=== PATIENT | male | born 1945 | race Caucasian/White ===

== ENCOUNTER 2016-11-18 15:46 | Emergency (ER) | payer MEDICARE ==
[2016-11-18 15:47] VITALS: BMI 25.6
[2016-11-18 16:20] VITALS: BP 143/72; PULSE 55; RESP 18; TEMP 97.9; O2SAT 99
--- NOTE | 2016-11-18 16:46 | C.PDOC ---
History Of Present Illness Patient is a 71 y/o M presenting with complaint of 1 year history of L upper back pain that started after he got shingles in the area. Reports that he has not followed up with his PMD. He reports using A&D with some relief. He is requesting pneumonia and shingles vaccines. Denies new complaints. Time Seen by Provider: 11/18/16 16:28 Chief Complaint (Nursing): Medical Clearance Past Medical History Vital Signs: Last Vital Signs Temp 97.9 F 11/18/16 16:16 Pulse 55 L 11/18/16 16:16 Resp 18 11/18/16 16:16 BP 143/72 11/18/16 16:16 Pulse Ox 99 11/18/16 16:55 - Medical History PMH: Benign Prostatic Hyperplasia, Diabetes, HTN Denies: Chronic Kidney Disease Family History: States: Unknown Family Hx - Social History Hx Tobacco Use: No Hx Alcohol Use: No Hx Substance Use: No - Immunization History Hx Tetanus Toxoid Vaccination: No Hx Influenza Vaccination: No Hx Pneumococcal Vaccination: No Review Of Systems Constitutional: Negative for: Fever Cardiovascular: Negative for: Chest Pain Respiratory: Negative for: Cough, Shortness of Breath, SOB with Excertion, Wheezing Gastrointestinal: Negative for: Nausea, Vomiting, Abdominal Pain, Diarrhea, Constipation Musculoskeletal: Negative for: Neck Pain Skin: Positive for: Other (pain to L upper back x 1 year). Negative for: Rash Neurological: Negative for: Weakness, Numbness, Altered Mental Status, Headache Physical Exam - Physical Exam Appears: Well, Non-toxic, No Acute Distress Skin: Normal Color, Warm, Dry Head: Atraumatic, Normacephalic Eye(s): bilateral: Normal Inspection, PERRL, EOMI Neck: Supple Cardiovascular: Rhythm Regular Respiratory: Normal Breath Sounds Gastrointestinal/Abdominal: Normal Exam, Soft, No Tenderness Back: Normal Inspection, No CVA Tenderness, No Decreased ROM, No Muscle Spasm, No Paraspinal Tenderness, Other (no rash) Extremity: Normal ROM Neurological/Psych: Oriented x3 Gait: Steady ED Course And Treatment O2 Sat by Pulse Oximetry: 99 Medical Decision Making Medical Decision Making: It was explained to patient that he cannot have shingles vaccine now as he has already had shingles. Instructed that we do not have pneumonia vaccine but he can get it at clinic. Patient has post-herpetic neuralgia. With give anti- inflammatory now and discharge with gabapentin. Disposition - Disposition Referrals: [facility] at [facility] [Outside] Disposition: HOME/ ROUTINE Disposition Time: 16:47 Condition: GOOD Additional Instructions: You have post shingles nerve pain. Take this medication. Follow-up with PMD within 2 days. Return to ED if condition worsens. Prescriptions: Gabapentin [Neurontin] 100 mg PO TID #90 capsule Instructions: Shingles (ED) - Clinical Impression Clinical Impression: Post herpetic neuralgia
== END 2016-11-18 17:05 | disposition home or self-care (01) ==
LOC: C.ER 15:46
DX: B02.29 Other postherpetic nervous system involvement (principal)
CPT/HCPCS: 96372; 99282; J1885

== ENCOUNTER 2017-08-29 17:49 | Emergency (ER) | payer MEDICARE ==
[2017-08-29 17:49] VITALS: BMI 25.6
--- NOTE | 2017-08-29 18:43 | C.PDOC ---
History Of Present Illness 72 y/o M p/w abdominal pain x 2 hours. Pain is epigastric but somewhat diffuse, feels that abdomen is hard, associated with NBNB vomiting x 4. He notes he also had chest pain and lower back pain, but they have both resolved. Denies fever, chills, diarrhea, dyspnea, dysuria, constipation. Time Seen by Provider: 08/29/17 18:35 Chief Complaint (Nursing): Chest Pain Past Medical History Vital Signs: Last Vital Signs Temp 98 F 08/29/17 19:46 Pulse 71 08/29/17 19:46 Resp 20 08/29/17 19:46 BP 134/67 08/29/17 19:46 Pulse Ox 96 08/29/17 19:46 - Medical History PMH: Benign Prostatic Hyperplasia, Diabetes, HTN Denies: Chronic Kidney Disease Family History: States: Unknown Family Hx - Social History Hx Tobacco Use: No Hx Alcohol Use: No Hx Substance Use: No - Immunization History Hx Tetanus Toxoid Vaccination: No Hx Influenza Vaccination: No Hx Pneumococcal Vaccination: No Review Of Systems Except As Marked, All Systems Reviewed And Found Negative. Constitutional: Negative for: Fever Respiratory: Negative for: Shortness of Breath Physical Exam - Physical Exam Additional Physical Exam Comments: Gen: NAD Head: NC/AT Eyes: PERRL ENT: MMM Neck: Supple Chest: No tenderness CV: Regular rate. Radial pulses 2+ Lungs: CTA b/l Abd: Epigastric/LUQ tenderness with guarding Back: No CVA tenderness Extremities: No swelling or tenderness Skin: No rash Neuro: Alert, no focal deficit ED Course And Treatment O2 Sat by Pulse Oximetry: 100 Against Medical Advice - AMA Patient Left Against Medical Advice: The patient declines admission to the hospital and wishes to leave the Emergency Department. This action is against my medical advice. This decision was made with informed refusal. The patient was told that admission to the hospital is necessary. Explanation of the reasons why were discussed. The risks of leaving were explained to the patient and include, but are not limited to, worsening of known or currently unknown conditions, permanent disability and from undiagnosed or untreated conditions. The patient has the capacity to make this informed decision and understands my explanation of the current medical problem and risks of leaving. The patient voluntarily accepts these risks and signed an AMA form documenting our conversation. The patient was given the opportunity to ask questions and reconsider. The patient was encouraged to return to the Emergency Department at any time for further care. Medical Decision Making Medical Decision Making: EKG NSR 65 bpm, no ST/T wave changes. Disposition - Disposition Disposition: AGAINST MEDICAL ADVICE Disposition Time: 19:22 Condition: UNKNOWN Prescriptions: Ondansetron ODT [Zofran ODT] 4 mg PO Q8 #12 odt Instructions: Leaving Against Medical Advice Forms: [facility] (Vietnamese), (AMA) Informed Refusal - Clinical Impression Clinical Impression: Abdominal pain, Left against medical advice
[2017-08-29 19:47] VITALS: BP 134/67; PULSE 71; RESP 20; TEMP 98
[2017-08-29 19:48] VITALS: O2SAT 100
--- NOTE | 2017-08-30 11:14 | RAD ---
HISTORY: chest pain COMPARISON: 07/13/2015 TECHNIQUE: Chest PA and lateral FINDINGS: LUNGS: No active pulmonary disease. PLEURA: No significant pleural effusion identified. No pneumothorax apparent. CARDIOVASCULAR: Normal. OSSEOUS STRUCTURES: Inferior subluxation right humeral head. Unlikely to represent hoang dislocation. Cannot rule out impaction fracture. Recommend further evaluation. Radiography of shoulder advised. VISUALIZED UPPER ABDOMEN: Normal. OTHER FINDINGS: None. IMPRESSION: No infiltrate. Inferior subluxation at right glenohumeral articulation. Recommend further evaluation with radiography of right shoulder.
--- NOTE | 2017-08-31 12:30 | CARD ---
APPROVED REPORT EKG Measurement Heart [id number] CT 170P37 [id number] <Conclusion> Normal sinus rhythm Normal ECG
== END 2017-08-29 19:48 | disposition left against medical advice (07) ==
LOC: C.ER 17:49
DX: R10.9 Unspecified abdominal pain (principal); I10 Essential (primary) hypertension

== ENCOUNTER 2017-12-24 16:52 | Emergency (ER) | payer MEDICARE, OTHER ==
[2017-12-24 16:53] VITALS: BMI 25.6
--- NOTE | 2017-12-24 18:09 | C.PDOC ---
History Of Present Illness 72 y/o male with history of BPH presents to ED with c/o chest pain for 3 days associated with sob worse when walking for a long distance. Patient admits to lower leg edema bilaterally and denies fever, cough, nausea, vomiting or any other complaints at this time. Time Seen by Provider: 12/24/17 18:01 Chief Complaint (Nursing): Chest Pain History Per: Patient History/Exam Limitations: no limitations Onset/Duration Of Symptoms: Days Current Symptoms Are (Timing): Still Present Past Medical History Reviewed: Historical Data, Nursing Documentation, Vital Signs Vital Signs: Last Vital Signs Temp 98.4 F 12/24/17 17:00 Pulse 66 12/24/17 17:00 Resp 20 12/24/17 17:00 BP 135/85 12/24/17 17:00 Pulse Ox 99 12/24/17 17:00 - Medical History PMH: Benign Prostatic Hyperplasia, Diabetes, HTN Surgical History: No Surg Hx Family History: States: No Known Family Hx - Social History Hx Tobacco Use: No Hx Alcohol Use: No Hx Substance Use: No - Immunization History Hx Tetanus Toxoid Vaccination: No Hx Influenza Vaccination: No Hx Pneumococcal Vaccination: No Review Of Systems Except As Marked, All Systems Reviewed And Found Negative. Cardiovascular: Positive for: Chest Pain Respiratory: Positive for: Shortness of Breath. Negative for: Cough Gastrointestinal: Negative for: Nausea, Vomiting Physical Exam - Physical Exam Additional Physical Exam Comments: Constitutional: No acute distress. Head: Normocephalic. Atraumatic. Eyes: PERRL. ENT: Moist mucous membranes. Neck: Supple. Cardiovascular: Regular rate. Radial pulse 2+ bilaterally. Chest: No tenderness. Respiratory: Clear to auscultation bilaterally. GI: Soft. Nontender. Nondistended. Back: No CVA tenderness. Musculoskeletal: Pitting edema bilaterally to lower extremities Skin: No rash. Neurologic: Alert, no focal deficit. ED Course And Treatment - Laboratory Results Result Diagrams: 12/24/17 18:13 12/24/17 18:13 O2 Sat by Pulse Oximetry: 99 (RA) Pulse Ox Interpretation: Normal Medical Decision Making Medical Decision Making: Found to be pancytopenic. Informed patient need for admission, likely blood transfusion. Patient refused, wished to go home AMA. Trop neg for this chest pain of 3 days. CXR no acute disease. Disposition - Disposition Disposition: AGAINST MEDICAL ADVICE Disposition Time: 19:00 Condition: GUARDED Instructions: Leaving Against Medical Advice Forms: [facility] (Latvian) - Clinical Impression Clinical Impression: Pancytopenia, Left against medical advice - Scribe Statement The provider has reviewed the documentation as recorded by the Scribaldo Ortiz All medical record entries made by the Scribe were at my direction and personally dictated by me. I have reviewed the chart and agree that the record accurately reflects my personal performance of the history, physical exam, medical decision making, and the department course for this patient. I have also personally directed, reviewed, and agree with the discharge instructions and disposition.
[2017-12-24 18:21] LABS: BASO % 0.3 % (0.0-2.0); EOS % 1.5 % (0.0-4.0); LYMPH # 1.5 K/uL (1.0-4.3); LYMPH % 56.4 % (20.0-40.0); MEAN CELL VOLUME 112.7 fL (80.0-94.0); MEAN CORPUSCULAR HEMOGLOBIN 38.6 pg (27.0-31.0); MEAN CORPUSCULAR HGB CONC 34.3 g/dL (33.0-37.0); MEAN PLATELET VOLUME 7.5 fL (7.2-11.7); MONO # 0.1 K/uL (0.0-0.8); MONO % 4.4 % (0.0-10.0); NEUT % 37.4 % (50.0-75.0); RBC 1.51 Mil/uL (4.40-5.90); RED CELL DISTRIBUTION WIDTH 13.6 % (11.5-14.5)
[2017-12-24 18:26] LABS: HEMOGLOBIN 5.8 g/dL (12.0-18.0); WHITE BLOOD COUNT 2.6 K/uL (4.8-10.8)
[2017-12-24 18:32] LABS: ALB/GLOB RATIO 1.5 (1.0-2.1); ALT/SGPT 48 U/L (21-72); AST/SGOT 50 U/L (17-59); BLOOD UREA NITROGEN 22 mg/dL (9-20); CALCIUM 9.4 mg/dl (8.6-10.4); GFR NON-AFRICAN AMERICAN > 60; LIPASE 122 U/L (23-300)
[2017-12-24 18:37] LABS: INR 1.2; PROTHROMBIN TIME 12.6 SECONDS (9.7-12.2)
[2017-12-24 18:43] LABS: B-TYPE NATRIURETIC PEPTIDE 188 pg/mL (0-900); CK-MB 1.13 ng/mL (0.0-3.38)
--- NOTE | 2017-12-24 18:52 | RAD ---
Date of service: 12/24/2017 HISTORY: chest pain COMPARISON: 08/29/2017 FINDINGS: LUNGS: No active pulmonary disease. PLEURA: No significant pleural effusion identified, no pneumothorax apparent. CARDIOVASCULAR: No atherosclerotic calcification present No radiographic findings to suggest acute or significant cardiovascular disease. OSSEOUS STRUCTURES: No significant abnormalities. VISUALIZED UPPER ABDOMEN: Normal. OTHER FINDINGS: None. IMPRESSION: No active disease. No significant interval change compared to the prior examination(s).
[2017-12-24 21:08] VITALS: BP 129/62; PULSE 61; RESP 15; TEMP 98.2; O2SAT 99
[2017-12-24 21:29] LABS: SQUAMOUS EPITHIAL < 1 /hpf (0-5); URINE BACTERIA FEW (<OCC); URINE BILIRUBIN NEGATIVE (NEGATIVE); URINE CLARITY Hazy (Clear); URINE COLOR Yellow (YELLOW); URINE GLUCOSE (UA) NORMAL (Normal); URINE LEUKOCYTE ESTERASE TRACE Leu/uL (Negative); URINE PROTEIN NEGATIVE (NEGATIVE)
[2017-12-24 21:35] LABS: URINE BLOOD TRACE (NEGATIVE)
--- NOTE | 2017-12-28 19:25 | CARD ---
APPROVED REPORT Date of service: 12/24/2017 EKG Measurement Heart [id number] [place] [id number] <Conclusion> Normal sinus rhythm Low voltage QRS Borderline ECG
== END 2017-12-24 21:31 | disposition left against medical advice (07) ==
LOC: C.ER 16:52 → C.9E 20:11 → UNDOADMIN 20:11 → C.5S 20:56 → C.9E 20:56
DX: D61.818 Other pancytopenia (principal); I10 Essential (primary) hypertension; E11.9 Type 2 diabetes mellitus without complications

== ENCOUNTER 2017-12-25 18:17 | Inpatient (IN) | payer MEDICARE, OTHER ==
[2017-12-25 18:17] VITALS: BMI 25.6
[2017-12-25 19:01] LABS: BASO % 0.4 % (0.0-2.0); EOS % 1.2 % (0.0-4.0); LYMPH # 1.1 K/uL (1.0-4.3); LYMPH % 48.7 % (20.0-40.0); MEAN CELL VOLUME 113.8 fL (80.0-94.0); MEAN CORPUSCULAR HEMOGLOBIN 39.3 pg (27.0-31.0); MEAN CORPUSCULAR HGB CONC 34.5 g/dL (33.0-37.0); MEAN PLATELET VOLUME 7.2 fL (7.2-11.7); MONO # 0.1 K/uL (0.0-0.8); MONO % 5.4 % (0.0-10.0); NEUT % 44.3 % (50.0-75.0); NRBC % 0.2 % (0.0-2.0); RBC 1.46 Mil/uL (4.40-5.90); RED CELL DISTRIBUTION WIDTH 13.7 % (11.5-14.5); WHITE BLOOD COUNT 2.2 K/uL (4.8-10.8)
[2017-12-25 19:08] LABS: HEMOGLOBIN 5.7 g/dL (12.0-18.0)
[2017-12-25 19:26] LABS: B-TYPE NATRIURETIC PEPTIDE 173 pg/mL (0-900)
--- NOTE | 2017-12-25 19:37 | C.PDOC ---
History Of Present Illness 72 y/o male with history of BPH presents to ED with c/o chest pain for 3 days associated with sob worse when walking for a long distance. Patient admits to lower leg edema bilaterally and denies fever, cough, nausea, vomiting or any other complaints at this time. He was seen in ED yesterday but signed out AMA after being advised to stay and receive proper medical help. Today he went to see his doctor, Dr. Ellis, who referred the patient to the hospital unaware of the fact that he was a patient here yesterday. Time Seen by Provider: 12/25/17 19:00 Chief Complaint (Nursing): Shortness Of Breath History Per: Patient History/Exam Limitations: no limitations Onset/Duration Of Symptoms: Days Current Symptoms Are (Timing): Still Present Quality: "Pain" Associated Symptoms: Ankle/Leg Swelling. denies: Fever, Productive Cough Recent travel outside of the [place]: No Past Medical History Reviewed: Historical Data, Nursing Documentation, Vital Signs Vital Signs: Last Vital Signs Temp 98.1 F 12/25/17 18:21 Pulse 71 12/25/17 18:21 Resp 20 12/25/17 18:21 BP 128/58 L 12/25/17 18:21 Pulse Ox 94 L 12/25/17 18:21 - Medical History PMH: Benign Prostatic Hyperplasia, Diabetes, HTN Denies: Chronic Kidney Disease Surgical History: No Surg Hx Family History: States: Unknown Family Hx - Social History Hx Tobacco Use: No Hx Alcohol Use: No Hx Substance Use: No - Immunization History Hx Tetanus Toxoid Vaccination: No Hx Influenza Vaccination: No Hx Pneumococcal Vaccination: No Review Of Systems Except As Marked, All Systems Reviewed And Found Negative. Cardiovascular: Positive for: Chest Pain Respiratory: Positive for: Shortness of Breath. Negative for: Cough Gastrointestinal: Negative for: Nausea, Vomiting Physical Exam - Physical Exam Additional Physical Exam Comments: Constitutional: No acute distress. Head: Normocephalic. Atraumatic. Eyes: PERRL. ENT: Moist mucous membranes. Neck: Supple. Cardiovascular: Regular rate. Radial pulse 2+ bilaterally. Chest: No tenderness. Respiratory: Clear to auscultation bilaterally. GI: Soft. Nontender. Nondistended. Back: No CVA tenderness. Musculoskeletal: Pitting edema bilaterally to lower extremities Skin: No rash. Neurologic: Alert, no focal deficit. ED Course And Treatment - Laboratory Results Result Diagrams: 12/25/17 18:58 12/25/17 18:58 O2 Sat by Pulse Oximetry: 94 (RA) Pulse Ox Interpretation: Normal - CT Scan/US CT Abdomen and Pelvis Other Rad Studies (CT/US): Read By Radiologist, Radiology Report Reviewed CT/US Interpretation: EXAM: CT Abdomen and Pelvis with IV contrast. CLINICAL HISTORY: Transaminitis. TECHNIQUE: Axial computed tomography images of the abdomen and pelvis with intravenous contrast. CONTRAST: With; Visipaque 320. COMPARISON: None provided. FINDINGS: LUNG BASES: The lung bases appear clear. No pleural effusions are seen. LIVER: Unremarkable. GALLBLADDER AND BILE DUCTS: Several small 2-3 mm calcified stones are seen in the gallbladder. 2 mm stone is noted in the distal CBD with mild intra and extrahepatic biliary ductal dilatation. PANCREAS: Unremarkable. SPLEEN: Unremarkable. ADRENAL GLANDS: Unremarkable. KIDNEYS, URETERS, AND BLADDER: Bilateral simple renal cysts. The kidneys otherwise appear within normal limits. There is no hydronephrosis or hydroureter. No urinary calculi are seen. Moderate amount of fecal material is seen throughout the colon compatible with constipation. STOMACH AND BOWEL: Moderate amount of stool fills the colon. APPENDIX: No evidence of acute appendicitis on CT examination. PERITONEUM: No free fluid. No free air. LYMPH NODES: No lymphadenopathy is evident. REPRODUCTIVE: The prostate is enlarged measuring 3.7 x 5.1 cm. VASCULATURE: No evidence of abdominal aortic aneurysm. BONES: No aggressive appearing osseous lesion. No acute osseous pathology evident. IMPRESSION: 1. Several small 2-3 mm calcified stones are seen in the gallbladder. 2 mm stone is noted in the distal CBD with mild intra and extrahepatic biliary ductal dilatation. 2. Moderate amount of fecal material is seen throughout the colon compatible with constipation. 3. The prostate is enlarged. CT Angio Chest Other Rad Studies (CT/US): Read By Radiologist, Radiology Report Reviewed CT/US Interpretation: EXAM: CTA Chest with Intravenous Contrast for Pulmonary Embolism. CLINICAL HISTORY: Dyspnea. TECHNIQUE: Axial CTA images of the chest with intravenous contrast using a pulmonary embolism protocol. Reconstructed images were created and reviewed. 427 mGy-cm. CONTRAST: With; Visipaque 320 was administered without incident. COMPARISON: None provided. FINDINGS: PULMONARY ARTERIES. No evidence of central or segmental pulmonary embolism is seen. AORTA. There is no evidence for aneurysm or dissection of the thoracic aorta. LUNGS. The lungs appear clear. PLEURAL SPACES. No pneumothorax evident. No pleural effusions. HEART. Heart is mildly enlarged. Borderline pulmonary venous congestive changes. No significant pericardial effusion. LYMPH NODES. No lymphadenopathy is evident. BONES. No focal osseous abnormality or acute fracture. UPPER ABDOMEN. Images of the upper abdomen are unremarkable. IMPRESSION: No evidence of PE. Heart is mildly enlarged. Borderline pulmonary venous congestive changes. Medical Decision Making Medical Decision Making: Found to be pancytopenic. Informed patient need for admission, likely blood transfusion. Trop neg for this chest pain of 3 days. CXR no acute disease. Plan: -D-Dimer -CBC -B-Type Natriuretic -Blood bank Dr. Ellis recommends hospitalist admission. Dr. Hernandez accepts patient to hospitalist service. EKG NSR 64 bpm, no ST elevations Disposition Discussed With DrKriss: Alonso Hernandez Doctor Will See Patient In The: ED - Disposition Disposition: HOSPITALIZED Disposition Time: 22:20 Condition: GUARDED Forms: [facility] (Nicaraguan) - Clinical Impression Clinical Impression: Pancytopenia - Scribe Statement The provider has reviewed the documentation as recorded by the Scribe (Gabriela Torre) Provider Attestation: All medical record entries made by the Scribe were at my direction and personally dictated by me. I have reviewed the chart and agree that the record accurately reflects my personal performance of the history, physical exam, medical decision making, and the department course for this patient. I have also personally directed, reviewed, and agree with the discharge instructions and disposition.
[2017-12-25 19:38] LABS: ALB/GLOB RATIO 1.5 (1.0-2.1); ALBUMIN 3.7 g/dL (3.5-5.0); ALT/SGPT 145 U/L (21-72); AST/SGOT 210 U/L (17-59); BLOOD UREA NITROGEN 20 mg/dL (9-20); GFR NON-AFRICAN AMERICAN > 60
[2017-12-25] MEDS ORDERED: Iodixanol 320 MG/ML 100 ML BOTTLE IV ONE (20:20)
[2017-12-25] MEDS ORDERED: Piperacill/Tazo 4.5gm in Dex 4.5 GM/100 ML BAG IVPB STA (22:04)
--- NOTE | 2017-12-26 03:30 | CP.PCM.HP ---
<Matthew Pickard - Last Filed: 12/26/17 04:18> History of Present Illness - History of Present Illness History of Present Illness: PGY-1 H&P note for Dr Hernandez service cc: chest pain, shortness of breath HPI: patient is a 72 year old male with past medica history of shingles and BPH that comes to ED after visiting his primary Doctor Caleb requested him to go to ER for treatment of anemia. Patient came to the ER the night before complaining of chest pain, shortness of breath and lower extremity edema, but decided to leave AMA after being told that he needed to be admitted for further workup and blood transfusion for low hemoglobin levels. Patient admits to continuing chest pain and shortness of breath when walking long distances. Patient admits to abdominal pain when eating foods. Patient denies fever, chills, palpitations, nausea, vomiting, diarrhea, blood in the urine or stools. PMD: Caleb Alleriges : NKDA Past medical history: shingles, BPH, cholelithiasis Shx: denies Famhx: noncontributory Sochx: denies tobacco, alcohol or illicit drug use Present on Admission - Present on Admission Any Indicators Present on Admission: No Review of Systems - Review of Systems All systems: reviewed and no additional remarkable complaints except Review of Systems: as stated in HPI Past Patient History - Infectious Disease Hx of Infectious Diseases: None - Past Medical History & Family History Past Medical History?: Yes - Past Social History Smoking Status: Never Smoked - CARDIAC Hx Hypertension: Yes - PULMONARY Hx Respiratory Disorders: No - NEUROLOGICAL Hx Neurological Disorder: No - HEENT Hx HEENT Problems: No - RENAL Hx Chronic Kidney Disease: No - ENDOCRINE/METABOLIC Hx Endocrine Disorders: No - HEMATOLOGICAL/ONCOLOGICAL Hx Blood Disorders: No - INTEGUMENTARY Hx Dermatological Problems: No - MUSCULOSKELETAL/RHEUMATOLOGICAL Hx Musculoskeletal Disorders: No Hx Falls: No - GASTROINTESTINAL Hx Gastrointestinal Disorders: No - GENITOURINARY/GYNECOLOGICAL Hx Genitourinary Disorders: Yes - PSYCHIATRIC Hx Substance Use: No - SURGICAL HISTORY Hx Surgeries: No - ANESTHESIA Hx Anesthesia: No Meds Allergies/Adverse Reactions: Allergies Allergy/AdvReac Type Severity Reaction Status Date / Time No Known Allergies Allergy Verified 12/25/17 18:23 Physical Exam - Constitutional Appears: Non-toxic, No Acute Distress - Head Exam Head Exam: ATRAUMATIC, NORMAL INSPECTION, NORMOCEPHALIC - Eye Exam Eye Exam: EOMI, Normal appearance Pupil Exam: NORMAL ACCOMODATION - ENT Exam ENT Exam: Mucous Membranes Moist, Normal Exam - Neck Exam Neck exam: Positive for: Normal Inspection - Respiratory Exam Respiratory Exam: Clear to Auscultation Bilateral, NORMAL BREATHING PATTERN. absent: Rales, Rhonchi, Wheezes, Respiratory Distress - Cardiovascular Exam Cardiovascular Exam: REGULAR RHYTHM, +S1, +S2 - GI/Abdominal Exam GI & Abdominal Exam: Soft. absent: Distended, Tenderness - Extremities Exam Extremities exam: Positive for: full ROM Additional comments: +2 pitting edema - Back Exam Back exam: FULL ROM, NORMAL INSPECTION - Neurological Exam Neurological exam: Alert, Normal Gait, Oriented x3 - Psychiatric Exam Psychiatric exam: Normal Affect, Normal Mood - Skin Skin Exam: Dry, Intact, Normal Color, Warm Results - Vital Signs Recent Vital Signs: Last Vital Signs Temp 98.2 F 12/26/17 02:33 Pulse 69 12/26/17 02:33 Resp 16 12/26/17 02:33 BP 127/56 L 12/26/17 02:33 Pulse Ox 100 12/26/17 02:33 - Labs Result Diagrams: 12/25/17 18:58 12/25/17 18:58 Labs: Laboratory Results - last 24 hr 12/25/17 12/25/17 12/25/17 18:58 18:58 18:58 WBC 2.2 L RBC 1.46 L Hgb 5.7 L* Hct 16.6 L MCV 113.8 H MCH 39.3 H MCHC 34.5 RDW 13.7 Plt Count 104 L MPV 7.2 Neut % (Auto) 44.3 L Lymph % (Auto) 48.7 H Petroleum % (Auto) 5.4 Eos % (Auto) 1.2 Baso % (Auto) 0.4 Neut # (Auto) 1.0 L Lymph # (Auto) 1.1 Petroleum # (Auto) 0.1 Eos # (Auto) 0.0 Baso # (Auto) 0.0 D-Dimer, Quantitative Sodium 138 Potassium 4.0 Chloride 103 Carbon Dioxide 27 Anion Gap 12 BUN 20 Creatinine 0.8 Est GFR ( Amer) > 60 Est GFR (Non-Af Amer) > 60 Random Glucose 136 H Calcium 9.0 Total Bilirubin 2.1 H AST 210 H D ALT 145 H D Alkaline Phosphatase 220 H D NT-Pro-B Natriuret Pep 173 Total Protein 6.2 L Albumin 3.7 Globulin 2.5 Albumin/Globulin Ratio 1.5 Blood Type O POSITIVE Antibody Screen Negative 12/25/17 19:40 WBC RBC Hgb Hct MCV MCH MCHC RDW Plt Count MPV Neut % (Auto) Lymph % (Auto) Petroleum % (Auto) Eos % (Auto) Baso % (Auto) Neut # (Auto) Lymph # (Auto) Petroleum # (Auto) Eos # (Auto) Baso # (Auto) D-Dimer, Quantitative 262 H Sodium Potassium Chloride Carbon Dioxide Anion Gap BUN Creatinine Est GFR ( Amer) Est GFR (Non-Af Amer) Random Glucose Calcium Total Bilirubin AST ALT Alkaline Phosphatase NT-Pro-B Natriuret Pep Total Protein Albumin Globulin Albumin/Globulin Ratio Blood Type Antibody Screen Assessment & Plan - Assessment and Plan (Free Text) Plan: dyspnea/chest pain - CT angio chest - f/u official report - ED Zosyn 1.5gm IVPB stat - blood cultures stat - O2 NC 2L PRN Pancytopenia, r/o hematological disease - Hbg 5.7, HCt 16.6 - WBC: 2.2 - Plt count: 104 - afebrile - 2 units RBCs - CT chest - Heme/onc consult - Dr Mackey- help is appreciated - f/u CBC, CMP Abdominal pain, hx of cholelithiasis - U/s gallbladder and hepatic - f/u - GI consult - Dr Basim Crews - help is appreciated bilateral pitting edema, lower ext - D- dimer - 262 - Echo -f/u - Lasix 20 mg IVP stat transaminitis - Abd and pelvis IV contrast - f/u hx of bph - continue home med flomax 0.4 PO HS ppx: DVT: SCDs heart healthy diet DISPO: Nurse called house pager early in the am on Tuesday 12/26 because patient wanting to leave the hospital AMA. Patient stated that he wants to leave because he already got blood transfusion. Patient demanded to know what else is to be done for him, which was explained to him multiple times that blood work and further workup, as well as consultations were planned for his hospital stay. Krunal mckoy decided to stay and wait for the corporate development manager for doctors to tell him about lab work. Plan discussed with Dr Alonso Pickard, PGY-1 - Date & Time Date: 12/26/17 Time: 01:00 <Alonso Hernandez P - Last Filed: 12/26/17 07:38> Results - Vital Signs Recent Vital Signs: Last Vital Signs Temp 98.2 F 12/26/17 02:33 Pulse 69 12/26/17 02:33 Resp 16 12/26/17 02:33 BP 127/56 L 12/26/17 02:33 Pulse Ox 100 12/26/17 02:33 - Labs Result Diagrams: 12/25/17 18:58 12/25/17 18:58 Labs: Laboratory Results - last 24 hr 12/25/17 12/25/17 12/25/17 18:58 18:58 18:58 WBC 2.2 L RBC 1.46 L Hgb 5.7 L* Hct 16.6 L MCV 113.8 H MCH 39.3 H MCHC 34.5 RDW 13.7 Plt Count 104 L MPV 7.2 Neut % (Auto) 44.3 L Lymph % (Auto) 48.7 H Petroleum % (Auto) 5.4 Eos % (Auto) 1.2 Baso % (Auto) 0.4 Neut # (Auto) 1.0 L Lymph # (Auto) 1.1 Petroleum # (Auto) 0.1 Eos # (Auto) 0.0 Baso # (Auto) 0.0 D-Dimer, Quantitative Sodium 138 Potassium 4.0 Chloride 103 Carbon Dioxide 27 Anion Gap 12 BUN 20 Creatinine 0.8 Est GFR ( Amer) > 60 Est GFR (Non-Af Amer) > 60 Random Glucose 136 H Calcium 9.0 Total Bilirubin 2.1 H AST 210 H D ALT 145 H D Alkaline Phosphatase 220 H D NT-Pro-B Natriuret Pep 173 Total Protein 6.2 L Albumin 3.7 Globulin 2.5 Albumin/Globulin Ratio 1.5 Blood Type O POSITIVE Antibody Screen Negative 12/25/17 19:40 WBC RBC Hgb Hct MCV MCH MCHC RDW Plt Count MPV Neut % (Auto) Lymph % (Auto) Petroleum % (Auto) Eos % (Auto) Baso % (Auto) Neut # (Auto) Lymph # (Auto) Petroleum # (Auto) Eos # (Auto) Baso # (Auto) D-Dimer, Quantitative 262 H Sodium Potassium Chloride Carbon Dioxide Anion Gap BUN Creatinine Est GFR ( Amer) Est GFR (Non-Af Amer) Random Glucose Calcium Total Bilirubin AST ALT Alkaline Phosphatase NT-Pro-B Natriuret Pep Total Protein Albumin Globulin Albumin/Globulin Ratio Blood Type Antibody Screen Attending/Attestation - Attestation I have personally seen and examined this patient.: Yes I have fully participated in the care of the patient.: Yes I have reviewed all pertinent clinical information: Yes Notes (Text): 12/26/17 07:34 Pancytopenia, with major component being anemia 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 Chronic cholecystitis, with lithiasis and intermittent choledocolithiasis, in the past not compliant with gb surgery offered, has mild episode this time as well Patient has sick at home does not stay in the hospital longer then few hrs, last night stayed for blood transfusions, but needs further cardiac eval with echo, diuresis, w/u for pancytopenia including BM biopsy, also plan regarding biliary w/u and plan for future cholecystectomy, but as the patient has been very non compliant with hospital stay it is very likely that he will sign out this time, he had requested that in the middle of the night and we were able to convince him to stay till the morning.
[2017-12-26 07:35] LABS: BASO % 0.3 % (0.0-2.0); EOS # 0.1 K/uL (0.0-0.7); EOS % 2.6 % (0.0-4.0); LYMPH # 1.4 K/uL (1.0-4.3); LYMPH % 51.3 % (20.0-40.0); MEAN CORPUSCULAR HEMOGLOBIN 36.5 pg (27.0-31.0); MEAN CORPUSCULAR HGB CONC 35.3 g/dL (33.0-37.0); MONO # 0.1 K/uL (0.0-0.8); MONO % 4.5 % (0.0-10.0); NEUT # 1.1 K/uL (1.8-7.0); NEUT % 41.3 % (50.0-75.0); NRBC % 0.1 % (0.0-2.0); RBC 2.17 Mil/uL (4.40-5.90); RED CELL DISTRIBUTION WIDTH 21.9 % (11.5-14.5); WHITE BLOOD COUNT 2.7 K/uL (4.8-10.8)
[2017-12-26 07:43] LABS: HEMOGLOBIN 7.9 g/dL (12.0-18.0); MEAN CELL VOLUME 103.5 fL (80.0-94.0)
[2017-12-26 09:13] LABS: BLOOD UREA NITROGEN 19 mg/dL (9-20); GFR NON-AFRICAN AMERICAN > 60
[2017-12-26 09:14] LABS: ALB/GLOB RATIO 1.4 (1.0-2.1); ALBUMIN 3.4 g/dL (3.5-5.0); ALT/SGPT 110 U/L (21-72); AST/SGOT 93 U/L (17-59)
[2017-12-26 10:47] VITALS: BP 111/36; PULSE 60; RESP 20; TEMP 98.3; O2SAT 95
[2017-12-26 11:22] LABS: FOLATE > 20.0 ng/mL
--- NOTE | 2017-12-26 12:01 | CT ---
Date of service: 12/25/2017 PROCEDURE: CT Chest with contrast (Pulmonary Angiogram) HISTORY: dyspnea COMPARISON: None available. TECHNIQUE: Axial computed tomography images were obtained of the chest in the pulmonary arterial phase of enhancement. Coronal and sagittal reformatted images were created and reviewed. Sagittal coronal MIPS reformatted images were obtained. Radiation dose: Total exam DLP = 427.47 mGy-cm. This CT exam was performed using one or more of the following dose reduction techniques: Automated exposure control, adjustment of the mA and/or kV according to patient size, and/or use of iterative reconstruction technique. FINDINGS: PULMONARY ARTERIES: No evidence of central pulmonary embolism. More limited evaluation of the segmental and subsegmental branches. AORTA: Atherosclerotic calcification and mural plaque within the visualized aorta. Ascending thoracic aorta measures up to 3.9 centimeters with some aneurysmal dilatation. Aortic arch measures 2.4 centimeters. Descending thoracic aorta measures 3.4 centimeters. LUNGS: Right lung: Atelectasis at the right lung base. Left lung: Atelectasis at the left lung base. Trachea thru central airways are patent. Pulmonary venous congestion. PLEURAL SPACES: Unremarkable. No effusion or pneumothorax. HEART: Mildly enlarged. No significant pericardial effusion. Coronary calcifications. LYMPH NODES: No lymphadenopathy. BONES, CHEST WALL: Degenerative changes in the spine. OTHER FINDINGS: Heterogeneous thyroid with a questionable 6 millimeter nodule in the left lobe of the thyroid. Prominent liver and spleen. Cholelithiasis. Small hiatal hernia. IMPRESSION: 1. No evidence of central pulmonary embolism. 2. Heart is mildly enlarged. 3. Borderline pulmonary venous congestive changes. 4. Ascending thoracic aorta measures up to 3.9 centimeters with some aneurysmal dilatation. 5. Heterogeneous thyroid with a questionable 6 millimeter nodule in the left lobe of the thyroid. 6. Prominent liver and spleen. Cholelithiasis. 7. Small hiatal hernia. Additional findings as above. These findings were preliminarily reported at 9:42 p.m. on 12/25/[address] Braeden Sharpe from [employer].
--- NOTE | 2017-12-26 12:34 | CP.PCM.DIS ---
<Roney Mix E - Last Filed: 12/26/17 12:10> Provider - Provider Date of Admission: 12/25/17 22:15 Attending physician: Alonso Hernandez MD Time Spent in preparation of Discharge (in minutes): 15 Hospital Course - Lab Results Lab Results: Most Recent Lab Values WBC 2.7 K/uL (4.8-10.8) L 12/26/17 07:20 RBC 2.17 Mil/uL (4.40-5.90) L 12/26/17 07:20 Hgb 7.9 g/dL (12.0-18.0) L D 12/26/17 07:20 Hct 22.5 % (35.0-51.0) L 12/26/17 07:20 MCV 103.5 fL (80.0-94.0) H D 12/26/17 07:20 MCH 36.5 pg (27.0-31.0) H 12/26/17 07:20 MCHC 35.3 g/dL (33.0-37.0) 12/26/17 07:20 RDW 21.9 % (11.5-14.5) H 12/26/17 07:20 Plt Count 97 K/uL (130-400) L 12/26/17 07:20 MPV 8.0 fL (7.2-11.7) 12/26/17 07:20 Neut % (Auto) 41.3 % (50.0-75.0) L 12/26/17 07:20 Lymph % (Auto) 51.3 % (20.0-40.0) H 12/26/17 07:20 [place] % (Auto) 4.5 % (0.0-10.0) 12/26/17 07:20 Eos % (Auto) 2.6 % (0.0-4.0) 12/26/17 07:20 Baso % (Auto) 0.3 % (0.0-2.0) 12/26/17 07:20 Neut # (Auto) 1.1 K/uL (1.8-7.0) L 12/26/17 07:20 Lymph # (Auto) 1.4 K/uL (1.0-4.3) 12/26/17 07:20 [place] # (Auto) 0.1 K/uL (0.0-0.8) 12/26/17 07:20 Eos # (Auto) 0.1 K/uL (0.0-0.7) 12/26/17 07:20 Baso # (Auto) 0.0 K/uL (0.0-0.2) 12/26/17 07:20 D-Dimer, Quantitative 262 ng/mlDDU (0-243) H 12/25/17 19:40 Sodium 138 mmol/L (132-148) 12/26/17 07:20 Potassium 3.7 mmol/L (3.6-5.2) 12/26/17 07:20 Chloride 101 mmol/L (98-107) 12/26/17 07:20 Carbon Dioxide 29 mmol/L (22-30) 12/26/17 07:20 Anion Gap 12 (10-20) 12/26/17 07:20 BUN 19 mg/dL (9-20) 12/26/17 07:20 Creatinine 0.9 mg/dL (0.8-1.5) 12/26/17 07:20 Est GFR ( Amer) > 60 12/26/17 07:20 Est GFR (Non-Af Amer) > 60 12/26/17 07:20 Random Glucose 147 mg/dL (75-110) H 12/26/17 07:20 Calcium 9.0 mg/dl (8.6-10.4) 12/26/17 07:20 Total Bilirubin 2.0 mg/dL (0.2-1.3) H 12/26/17 07:20 AST 93 U/L (17-59) H D 12/26/17 07:20 ALT 110 U/L (21-72) H D 12/26/17 07:20 Alkaline Phosphatase 166 U/L (38-126) H D 12/26/17 07:20 NT-Pro-B Natriuret Pep 173 pg/mL (0-900) 12/25/17 18:58 Total Protein 5.8 g/dL (6.3-8.3) L 12/26/17 07:20 Albumin 3.4 g/dL (3.5-5.0) L 12/26/17 07:20 Globulin 2.4 gm/dL (2.2-3.9) 12/26/17 07:20 Albumin/Globulin Ratio 1.4 (1.0-2.1) 12/26/17 07:20 Vitamin B12 < 159 pg/mL (239-931) L 12/26/17 07:20 Folate > 20.0 ng/mL 12/26/17 07:20 Blood Type O POSITIVE 12/25/17 18:58 Antibody Screen Negative 12/25/17 18:58 - Hospital Course Hospital Course: HPI (As per admission note): CC: chest pain, shortness of breath HPI: patient is a 72 year old male with past medica history of shingles and BPH that comes to ED after visiting his primary Doctor Caleb requested him to go to ER for treatment of anemia. Patient came to the ER the night before complaining of chest pain, shortness of breath and lower extremity edema, but decided to leave AMA after being told that he needed to be admitted for further workup and blood transfusion for low hemoglobin levels. Patient admits to continuing chest pain and shortness of breath when walking long distances. Patient admits to abdominal pain when eating foods. Patient denies fever, chills, palpitations, nausea, vomiting, diarrhea, blood in the urine or stools. Hospital Course: Patient was admitted with the diagnosis of symptomatic anemia, with Hgb of 5.7 after he was sent in by his PMD, Doctor Ellis. Patient received 2 units of PRBC, which led to an increase of Hgb by 2.2 points with symptomatic improvement for patient. However, pancytopenia was noted on lab results; very low WBC, Platelet and Neutrophil, which was explained to the patient as well as the health complications from such lab results. Patient was told that an evaluation by Hematology and oncology is completely indicated, therefore, warranting a possible longer stay at the hospital. Patient agreed initially but attempted to sign out AMA twice after completion of his blood transfusion with the night team. During morning rounds, patient reports that it is unreasonable for him to wait to see hematology/oncology since he is not sure when he will be seen and he is feeling better. At this time, patient had already removed his IV access and states that he cannot stay one more day and his PMD will get his lab results and do the necessary work-up outpatient. Upon multiple attempts of explaining to the patient is need for hematology/oncology evaluation; patient signed out AMA and states that he will follow up outpatient. Pertinent Imaging: Chest CT (PE Protocol): No evidence of central pulmonary embolism. 2. Heart is mildly enlarged. 3. Borderline pulmonary venous congestive changes. 4.Ascending thoracic aorta measures up to 3.9 centimeters with some aneurysmal dilatation. 5. Heterogeneous thyroid with a questionable 6 millimeter nodule in the left lobe of the thyroid. 6. Prominent liver and spleen. Cholelithiasis. 7. Small hiatal hernia. Abdomen/Pelvis CT: Several small 2-3mm calcified stones are seen in the gall bladder. 2mm stone is noted in the distal CBD with mild intra and extrahepatic biliary duct dilatation. Bilateral simple renal cysts. The kidneys otherwise appear within normal limits. There is no hydronephrosis or hydroureter. No urinary calculi are seen. Moderate amount of fecal material is seen throughout the colon compatible with constipation. The prostate is enlarged. Gallbladder US: Preliminary read for Gall stones and dilated CBD with possibly with stones. Right renal cyst; refer to the EMR for complete and official report This is a summary of event. Please refer to the EMR for complete course Discharge Exam - Head Exam Head Exam: ATRAUMATIC, NORMAL INSPECTION, NORMOCEPHALIC - Eye Exam Eye Exam: EOMI, Normal appearance - ENT Exam ENT Exam: Mucous Membranes Moist - Respiratory Exam Respiratory Exam: Clear to PA & Lateral, NORMAL BREATHING PATTERN - Cardiovascular Exam Cardiovascular Exam: REGULAR RHYTHM, +S1, +S2 - GI/Abdominal Exam GI & Abdominal Exam: Normal Bowel Sounds, Soft. absent: Diminished Bowel Sounds, Distended, Tenderness Additional comments: No RUQ pain with palpation - Extremities Exam Additional comments: Ankle edema (Right> Left) - Neurological Exam Neurological exam: Alert, Oriented x3 - Psychiatric Exam Psychiatric exam: Normal Affect - Skin Skin Exam: Normal Color Discharge Plan - Follow Up Plan Condition: GUARDED Disposition: AGAINST MEDICAL ADVICE <Alberto Negron Mary - Last Filed: 12/26/17 16:20> Provider - Provider Date of Admission: 12/25/17 22:15 Attending physician: Alonso Hernandez MD Hospital Course - Lab Results Lab Results: Most Recent Lab Values WBC 2.7 K/uL (4.8-10.8) L 12/26/17 07:20 RBC 2.17 Mil/uL (4.40-5.90) L 12/26/17 07:20 Hgb 7.9 g/dL (12.0-18.0) L D 12/26/17 07:20 Hct 22.5 % (35.0-51.0) L 12/26/17 07:20 MCV 103.5 fL (80.0-94.0) H D 12/26/17 07:20 MCH 36.5 pg (27.0-31.0) H 12/26/17 07:20 MCHC 35.3 g/dL (33.0-37.0) 12/26/17 07:20 RDW 21.9 % (11.5-14.5) H 12/26/17 07:20 Plt Count 97 K/uL (130-400) L 12/26/17 07:20 MPV 8.0 fL (7.2-11.7) 12/26/17 07:20 Neut % (Auto) 41.3 % (50.0-75.0) L 12/26/17 07:20 Lymph % (Auto) 51.3 % (20.0-40.0) H 12/26/17 07:20 [place] % (Auto) 4.5 % (0.0-10.0) 12/26/17 07:20 Eos % (Auto) 2.6 % (0.0-4.0) 12/26/17 07:20 Baso % (Auto) 0.3 % (0.0-2.0) 12/26/17 07:20 Neut # (Auto) 1.1 K/uL (1.8-7.0) L 12/26/17 07:20 Lymph # (Auto) 1.4 K/uL (1.0-4.3) 12/26/17 07:20 [place] # (Auto) 0.1 K/uL (0.0-0.8) 12/26/17 07:20 Eos # (Auto) 0.1 K/uL (0.0-0.7) 12/26/17 07:20 Baso # (Auto) 0.0 K/uL (0.0-0.2) 12/26/17 07:20 D-Dimer, Quantitative 262 ng/mlDDU (0-243) H 12/25/17 19:40 Sodium 138 mmol/L (132-148) 12/26/17 07:20 Potassium 3.7 mmol/L (3.6-5.2) 12/26/17 07:20 Chloride 101 mmol/L (98-107) 12/26/17 07:20 Carbon Dioxide 29 mmol/L (22-30) 12/26/17 07:20 Anion Gap 12 (10-20) 12/26/17 07:20 BUN 19 mg/dL (9-20) 12/26/17 07:20 Creatinine 0.9 mg/dL (0.8-1.5) 12/26/17 07:20 Est GFR ( Amer) > 60 12/26/17 07:20 Est GFR (Non-Af Amer) > 60 12/26/17 07:20 Random Glucose 147 mg/dL (75-110) H 12/26/17 07:20 Calcium 9.0 mg/dl (8.6-10.4) 12/26/17 07:20 Total Bilirubin 2.0 mg/dL (0.2-1.3) H 12/26/17 07:20 AST 93 U/L (17-59) H D 12/26/17 07:20 ALT 110 U/L (21-72) H D 12/26/17 07:20 Alkaline Phosphatase 166 U/L (38-126) H D 12/26/17 07:20 NT-Pro-B Natriuret Pep 173 pg/mL (0-900) 12/25/17 18:58 Total Protein 5.8 g/dL (6.3-8.3) L 12/26/17 07:20 Albumin 3.4 g/dL (3.5-5.0) L 12/26/17 07:20 Globulin 2.4 gm/dL (2.2-3.9) 12/26/17 07:20 Albumin/Globulin Ratio 1.4 (1.0-2.1) 12/26/17 07:20 Vitamin B12 < 159 pg/mL (239-931) L 12/26/17 07:20 Folate > 20.0 ng/mL 12/26/17 07:20 Blood Type O POSITIVE 12/25/17 18:58 Antibody Screen Negative 12/25/17 18:58 Attending/Attestation - Attestation I have personally seen and examined this patient.: Yes I have fully participated in the care of the patient.: Yes I have reviewed all pertinent clinical information, including history, physical exam and plan: Yes Notes (Text): 12/26/17 16:17 Medical attending: Patient had already pulled out his IV when I came and spoken to him. He does not want to stay he said. He was firm about leaving AMA but also very polite about it. I explained to the patient that he should at least follow up with his primary physician. Alberto Negron
--- NOTE | 2017-12-26 13:02 | CT ---
Date of service: 12/25/2017 PROCEDURE: CT Abdomen and Pelvis with intravenous contrast HISTORY: transaminitis COMPARISON: 09/30/2015 TECHNIQUE: Multiple contiguous axial images were performed through the abdomen and pelvis with the use of intravenous contrast. Subsequently, sagittal and coronal reformatted images were obtained. Radiation dose: Total exam DLP = 646.44 mGy-cm. This CT exam was performed using one or more of the following dose reduction techniques: Automated exposure control, adjustment of the mA and/or kV according to patient size, and/or use of iterative reconstruction technique. FINDINGS: LOWER THORAX: Atelectasis at the lung bases. LIVER: Mild intrahepatic biliary ductal dilatation. GALLBLADDER AND BILE DUCTS: Cholelithiasis. Dilated common bile duct with punctate 2-3 millimeter calculus in the distal common bile duct. Common bile duct measures up to 1.0 centimeters. PANCREAS: Unremarkable. No gross lesion or ductal dilatation. SPLEEN: Few punctate splenic hypodensities. ADRENALS: Unremarkable. No mass. KIDNEYS AND URETERS: Scattered low-attenuation lesions within the kidneys; for example, in the lower pole of the right kidney there is a 6 millimeter low-attenuation lesion. Larger multi lobulated low-attenuation lesion containing some septae measuring 7 centimeters in the midpole of the left kidney demonstrating a Hounsfield unit attenuation of 11. Limited evaluation for renal calculi given contrast in the collecting system. VASCULATURE: Atherosclerotic calcification and plaque within the visualized aorta. BOWEL: Unremarkable. No obstruction. No gross mural thickening. Moderate fecal retention in the colon. APPENDIX: No findings to suggest acute appendicitis. PERITONEUM: Unremarkable. No free fluid. No free air. LYMPH NODES: Few shotty para-aortic and inguinal lymph nodes. BLADDER: Mild thickening of the urinary bladder wall REPRODUCTIVE: Prominent prostate with calcification. BONES: Degenerative changes in the spine. Prominent multilevel posterior disc osteophyte complexes throughout the spine. OTHER FINDINGS: None. IMPRESSION: Choledocholithiasis with dilated common bile duct as well as 2-3 millimeter calculus in the distal common bile duct. Clinical correlation. Correlation with MRCP may be helpful if clinically indicated. Cholelithiasis. Additional findings as above. Preliminary report was submitted at 9:40 p.m. on 12/25/[address] Braeden Sharpe from [employer]
--- NOTE | 2017-12-26 14:16 | US ---
Right upper quadrant abdominal ultrasound HISTORY: Cholelithiasis. COMPARISON: CT scan dated 12/25/2017. TECHNIQUE: Real-time sonography was performed through the right quadrant of the abdomen. FINDINGS: Liver: 15 centimeters in length. Normal echogenicity. Gallbladder: Cholelithiasis. Top normal gallbladder wall thickness of 1.8 millimeters. Negative sonographic Huynh's sign. Common bile duct is prominent measuring up to 7.7 millimeters. Questionable echogenic calculus and or sludge in the common bile duct. Correlation with MRCP may be helpful if clinically indicated. Limited visualization of the pancreas. Visualized portions of the aorta and IVC are grossly preserved. Atherosclerotic calcification and or mural plaque is noted within the aorta. Right kidney: 11.8 x 5.3 x 5.6 centimeters. No calculi or hydronephrosis. Hypoechoic lower pole cyst measuring 1.0 x 0.8 x 1.0 centimeters. Impression: 1. Cholelithiasis. 2. Dilated common bile duct measuring up to 9.7 millimeters with questionable echogenic foci in the common bile duct suggestive possible calculus and or sludge. Correlation with MRCP may be helpful for further evaluation if clinically indicated. 3. Limited visualization of the pancreas. 4. Right renal cyst.
--- NOTE | 2017-12-28 19:24 | CARD ---
APPROVED REPORT Date of service: 12/25/2017 EKG Measurement Heart [id number] <Conclusion> Normal sinus rhythm non specific st t changes.block Borderline ECG
== END 2017-12-26 10:30 | disposition left against medical advice (07) | DRG 810 ==
LOC: C.ER 18:17 → C.9E 22:15 → C.3T 22:46
PROVIDERS: ADMIT Internal Medicine; ATTEND Internal Medicine
PROC: 30233N1 Transfusion of Nonautologous Red Blood Cells into Peripheral Vein, Percutaneous Approach (ICD-10-PCS; principal; 2017-12-25)
DX: D61.818 Other pancytopenia (principal); R07.89 Other chest pain; R06.02 Shortness of breath; E11.9 Type 2 diabetes mellitus without complications; I10 Essential (primary) hypertension; K44.9 Diaphragmatic hernia without obstruction or gangrene; K59.00 Constipation, unspecified; K80.20 Calculus of gallbladder without cholecystitis without obstruction; N28.1 Cyst of kidney, acquired; N40.0 Benign prostatic hyperplasia without lower urinary tract symptoms; Z86.19 Personal history of other infectious and parasitic diseases